=== PATIENT | female | born 1980 | race Two or more races ===

== ENCOUNTER → 2019-04-07 | Outpatient (CLI) | payer MEDICAID ==
[~2019-04-07] MED LIST: DOBUTamine 1000MCG/ML 250 ML IV ONE; DOBUTamine 1000MCG/ML 250 ML IV SCH
--- NOTE | 2019-04-07 10:30 | NUR ---
IV insertion IV access obtained, via clean sterile technique by inserting 22 gauge catheter at [facility] after 1 attempt(s). IV secured properly. No trauma to site. Patient tolerated procedure well. 1140 Dobutamine stress echo completed per protocol. MD at bedside. Pt tolerated well. See paper chart for EKGs and notes. IV removal IV DC'd with clean sterile technique, catheter fully intact. Pressure dressing applied to site. Patient tolerated well.
== END | disposition home or self-care (01) ==
LOC: Rad HDHVI 10:25
PROVIDERS: ATTEND Internal Medicine Cardiovascular Disease
DX: Z01.810 Encounter for preprocedural cardiovascular examination (principal)
CPT/HCPCS: 93005; 93350; 96365; G0463; J1250